=== PATIENT | female | born 1945 | race Caucasian/White ===

== ENCOUNTER 2016-08-19 10:49 | Outpatient (CLI) | payer MEDICARE, OTHER | END 2016-08-19 10:50 | disposition home or self-care (01) | DX: R06.09 Other forms of dyspnea (principal) ==

== ENCOUNTER 2016-08-19 11:22 | Outpatient (CLI) | payer MEDICARE, OTHER | END 2016-08-19 11:23 | disposition home or self-care (01) | DX: R06.00 Dyspnea, unspecified (principal) ==

== ENCOUNTER 2016-08-25 13:21 | Outpatient (CLI) | payer MEDICARE, OTHER ==
[2016-08-25] MEDS ORDERED: ALBUTEROL NEB 2.5 MG/3 ML INH ONE (14:40)
== END 2016-08-25 13:22 | disposition home or self-care (01) ==
DX: R06.00 Dyspnea, unspecified (principal)
CPT/HCPCS: 94060; 94729; J7613

== ENCOUNTER 2016-12-05 10:31 | Outpatient (CLI) | payer MEDICARE, OTHER ==
[2016-12-05 19:12] LABS: ALBUMIN/GLOBULIN RATIO 1.3 (1.0-2.2); BILIRUBIN,TOTAL 0.5 mg/dL (0.2-1.0); BUN - BLOOD UREA NITROGEN 18 mg/dL (6-20); CALCIUM 9.3 mg/dL (8.5-10.3); CARBON DIOXIDE - CO2 31 mmol/L (21-32); CHLORIDE 97 mmol/L (101-111); CHOL/HDL RATIO 3.6 (<4.4); CHOLESTEROL 205 mg/dL; GFR - MDRD 55 (>89); GLUCOSE 93 mg/dL (70-100); HDL CHOLESTEROL 57 mg/dL; LDL/HDL RATIO 2.1 (<4.4); POTASSIUM 3.2 mmol/L (3.5-5.0); SODIUM 138 mmol/L (135-145); TOTAL PROTEIN 7.2 g/dL (6.7-8.2); TRIGLYCERIDES 156 mg/dL; VLDL CHOLESTEROL 31 mg/dL
== END 2016-12-05 10:32 | disposition home or self-care (01) ==
LOC: LAB.F 10:31
PROVIDERS: ATTEND Internal Medicine
DX: I10 Essential (primary) hypertension (principal); E78.00 Pure hypercholesterolemia, unspecified
CPT/HCPCS: 36415; 80053; 80061

== ENCOUNTER 2017-03-08 08:53 | Outpatient (CLI) | payer MEDICARE, OTHER ==
[2017-03-08 18:41] LABS: CALCIUM 9.3 mg/dL (8.5-10.3)
== END 2017-03-08 08:54 | disposition home or self-care (01) ==
LOC: LAB.F 08:53
PROVIDERS: ATTEND Physician Assistant Medical
DX: E87.6 Hypokalemia (principal)
CPT/HCPCS: 36415; 80048

== ENCOUNTER 2017-05-16 12:22 | Outpatient (CLI) | payer MEDICARE, OTHER ==
[2017-05-16 17:39] LABS: CALCIUM 9.3 mg/dL (8.5-10.3); POTASSIUM 3.6 mmol/L (3.5-5.0)
== END 2017-05-16 12:23 | disposition home or self-care (01) ==
LOC: LAB.F 12:22
PROVIDERS: ATTEND Family Medicine
DX: E87.6 Hypokalemia (principal); I10 Essential (primary) hypertension
CPT/HCPCS: 36415; 80048

== ENCOUNTER 2017-09-05 09:23 | Outpatient (CLI) | payer MEDICARE, OTHER ==
[2017-09-05 17:47] LABS: CALCIUM 9.1 mg/dL (8.5-10.3)
== END 2017-09-05 09:24 | disposition home or self-care (01) ==
LOC: LAB.F 09:23
PROVIDERS: ATTEND Family Medicine
DX: E87.6 Hypokalemia (principal); I10 Essential (primary) hypertension
CPT/HCPCS: 36415; 80048

== ENCOUNTER 2017-10-02 11:01 | Outpatient (CLI) | payer MEDICARE, OTHER ==
[2017-10-02 17:56] LABS: CALCIUM 8.7 mg/dL (8.5-10.3); CREATININE 0.9 mg/dL (0.4-1.0)
== END 2017-10-02 11:02 | disposition home or self-care (01) ==
LOC: LAB.F 11:01
PROVIDERS: ATTEND Family Medicine
DX: E87.6 Hypokalemia (principal)
CPT/HCPCS: 36415; 80048

== ENCOUNTER 2018-01-02 08:30 | Outpatient (CLI) | payer MEDICARE, OTHER ==
[2018-01-02 11:46] LABS: BASOPHILS # (AUTO) 0.1 10^3/uL (0.0-0.1); BASOPHILS % (AUTO) 0.8 %; EOSINOPHILS # (AUTO) 0.8 10^3/uL (0.0-0.7); EOSINOPHILS % (AUTO) 10.6 %; HGB - HEMOGLOBIN 15.2 g/dL (12.0-16.0); LYMPHOCYTES % (AUTO) 41.1 %; MEAN CORPUSCULAR HEMOGLOBIN 30.5 pg (27.0-31.0); MEAN CORPUSCULAR HGB CONC 33.2 g/dL (32.0-36.0); MEAN CORPUSCULAR VOLUME 91.8 fL (81.0-99.0); MEAN PLATELET VOLUME 9.2 fL (7.9-10.8); MONOCYTES # (AUTO) 0.8 10^3/uL (0.0-1.0); MONOCYTES % (AUTO) 10.9 %; NEUTROPHILS # (AUTO) 2.7 10^3/uL (1.5-6.6); NEUTROPHILS % (AUTO) 36.6 %; PLT - PLATELET COUNT 291 10^3/uL (130-450); RED BLOOD COUNT 4.97 10^6/uL (4.20-5.40); RED CELL DISTRIBUTION WIDTH 13.3 % (12.0-15.0); WHITE BLOOD COUNT 7.3 x10^3/uL (4.8-10.8)
[2018-01-02 12:03] LABS: ALBUMIN 3.9 g/dL (3.2-5.5); ALBUMIN/GLOBULIN RATIO 1.1 (1.0-2.2); ALKALINE PHOSPHATASE 86 IU/L (42-121); ALT ALANINE AMINOTRANSFERASE 46 IU/L (10-60); AST ASPARTATE AMINOTRANSFERASE 61 IU/L (10-42); BILIRUBIN,TOTAL 1.1 mg/dL (0.2-1.0); BUN - BLOOD UREA NITROGEN 12 mg/dL (6-20); CALCIUM 8.9 mg/dL (8.5-10.3); CARBON DIOXIDE - CO2 24 mmol/L (21-32); CHLORIDE 104 mmol/L (101-111); CHOL/HDL RATIO 3.1 (<4.4); CHOLESTEROL 168 mg/dL; GFR - MDRD 54 (>89); GLUCOSE 99 mg/dL (70-100); HDL CHOLESTEROL 55 mg/dL; LDL CHOLESTEROL,CALCULATED 81 mg/dL; LDL/HDL RATIO 1.5 (<4.4); SODIUM 137 mmol/L (135-145); TOTAL PROTEIN 7.3 g/dL (6.7-8.2); VLDL CHOLESTEROL 32 mg/dL
== END 2018-01-02 08:31 | disposition home or self-care (01) ==
LOC: LAB.F 08:30
PROVIDERS: ATTEND Family Medicine
DX: E87.6 Hypokalemia (principal); E78.00 Pure hypercholesterolemia, unspecified; I10 Essential (primary) hypertension; E55.9 Vitamin D deficiency, unspecified
CPT/HCPCS: 36415; 80053; 80061; 82306; 83721; 84443; 85025

== ENCOUNTER 2018-08-16 09:55 | Outpatient (CLI) | payer MEDICARE, OTHER ==
[2018-08-16 18:21] LABS: ALBUMIN 3.7 g/dL (3.2-5.5); ALBUMIN/GLOBULIN RATIO 1.2 (1.0-2.2); ALKALINE PHOSPHATASE 96 IU/L (42-121); ALT ALANINE AMINOTRANSFERASE 16 IU/L (10-60); AST ASPARTATE AMINOTRANSFERASE 21 IU/L (10-42); BILIRUBIN,TOTAL 0.8 mg/dL (0.2-1.0); BUN - BLOOD UREA NITROGEN 12 mg/dL (6-20); CALCIUM 8.7 mg/dL (8.5-10.3); CARBON DIOXIDE - CO2 26 mmol/L (21-32); CHLORIDE 103 mmol/L (101-111); CHOL/HDL RATIO 3.5 (<4.4); CHOLESTEROL 221 mg/dL; CREATININE 0.9 mg/dL (0.4-1.0); GFR - MDRD 61 (>89); GLUCOSE 91 mg/dL (70-100); HDL CHOLESTEROL 64 mg/dL; LDL CHOLESTEROL,CALCULATED 120 mg/dL; LDL/HDL RATIO 1.9 (<4.4); SODIUM 138 mmol/L (135-145); TOTAL PROTEIN 6.8 g/dL (6.7-8.2); VLDL CHOLESTEROL 37 mg/dL
== END 2018-08-16 09:56 | disposition home or self-care (01) ==
LOC: LAB.F 09:55
PROVIDERS: ATTEND Internal Medicine
DX: I10 Essential (primary) hypertension (principal); E78.00 Pure hypercholesterolemia, unspecified
CPT/HCPCS: 36415; 80053; 80061; 83721; 84443

== ENCOUNTER 2018-12-14 12:36 | Outpatient (CLI) | payer MEDICARE, OTHER ==
[2018-12-14 17:52] LABS: BASOPHILS # (AUTO) 0.1 10^3/uL (0.0-0.1); BASOPHILS % (AUTO) 1.1 %; EOSINOPHILS # (AUTO) 0.5 10^3/uL (0.0-0.7); EOSINOPHILS % (AUTO) 7.1 %; HGB - HEMOGLOBIN 14.9 g/dL (12.0-16.0); LYMPHOCYTES # (AUTO) 2.5 10^3/uL (1.5-3.5); LYMPHOCYTES % (AUTO) 38.2 %; MEAN CORPUSCULAR HEMOGLOBIN 29.6 pg (27.0-31.0); MEAN CORPUSCULAR HGB CONC 32.1 g/dL (32.0-36.0); MEAN CORPUSCULAR VOLUME 92.1 fL (81.0-99.0); MEAN PLATELET VOLUME 11.3 fL (7.9-10.8); MONOCYTES # (AUTO) 0.7 10^3/uL (0.0-1.0); MONOCYTES % (AUTO) 10.9 %; NEUTROPHILS # (AUTO) 2.8 10^3/uL (1.5-6.6); NEUTROPHILS % (AUTO) 42.5 %; PLT - PLATELET COUNT 283 10^3/uL (130-450); RED BLOOD COUNT 5.04 10^6/uL (4.20-5.40); RED CELL DISTRIBUTION WIDTH 13.2 % (12.0-15.0); WHITE BLOOD COUNT 6.5 x10^3/uL (4.8-10.8)
[2018-12-14 18:03] LABS: ALBUMIN 3.8 g/dL (3.2-5.5); ALBUMIN/GLOBULIN RATIO 1.1 (1.0-2.2); BILIRUBIN,TOTAL 0.5 mg/dL (0.2-1.0); CALCIUM 8.8 mg/dL (8.5-10.3); CREATININE 0.9 mg/dL (0.4-1.0); TOTAL PROTEIN 7.2 g/dL (6.7-8.2)
== END 2018-12-14 12:37 | disposition home or self-care (01) ==
LOC: LAB.S 12:36
PROVIDERS: ATTEND Internal Medicine
DX: M79.609 Pain in unspecified limb (principal)
CPT/HCPCS: 36415; 80053; 82550; 83735; 85025; 85651

== ENCOUNTER 2019-02-19 09:38 | Day surgery (SDC) | payer MEDICARE, OTHER ==
[2019-02-19] MEDS ORDERED: MIDAZOLAM 2 MG/2 ML VIAL IVP ONE (09:39)
[2019-02-19] MEDS ORDERED: fentaNYL 100 MCG/2 ML VIAL IVP ONE (09:39)
[2019-02-19] MEDS ORDERED: LACTATED RINGERS 1,000 ML IV ONE (09:54)
[2019-02-19 12:20] VITALS: BP 99/69
== END 2019-02-19 09:39 | disposition home or self-care (01) ==
LOC: SDS 09:38
PROVIDERS: ATTEND Internal Medicine Gastroenterology
PROC: 0DBN8ZZ Excision of Sigmoid Colon, Via Natural or Artificial Opening Endoscopic (ICD-10-PCS; 2019-02-19)
PROC: 0DBM8ZZ Excision of Descending Colon, Via Natural or Artificial Opening Endoscopic (ICD-10-PCS; principal; 2019-02-19 11:00)
DX: Z12.11 Encounter for screening for malignant neoplasm of colon (principal); D12.4 Benign neoplasm of descending colon; D12.5 Benign neoplasm of sigmoid colon; K57.30 Diverticulosis of large intestine without perforation or abscess without bleeding; I10 Essential (primary) hypertension; J45.40 Moderate persistent asthma, uncomplicated
CPT/HCPCS: 45380; 45385; J7120

== ENCOUNTER 2020-01-01 10:08 | Outpatient (CLI) | payer MEDICARE ==
[2020-01-01 15:41] LABS: BUN - BLOOD UREA NITROGEN 14 mg/dL (6-20); CALCIUM 9.3 mg/dL (8.5-10.3); CARBON DIOXIDE - CO2 27 mmol/L (21-32); CHLORIDE 103 mmol/L (101-111); CHOL/HDL RATIO 2.9 (<4.4); CHOLESTEROL 173 mg/dL; CREATININE 1.1 mg/dL (0.4-1.0); GLUCOSE 94 mg/dL (70-100); HDL CHOLESTEROL 60 mg/dL; LDL CHOLESTEROL,CALCULATED 87 mg/dL; LDL/HDL RATIO 1.5 (<4.4); SODIUM 139 mmol/L (135-145); VLDL CHOLESTEROL 26 mg/dL
== END 2020-01-01 10:09 | disposition home or self-care (01) ==
LOC: LAB.S 10:08
PROVIDERS: ATTEND Internal Medicine
DX: J45.909 Unspecified asthma, uncomplicated (principal); E78.5 Hyperlipidemia, unspecified; I10 Essential (primary) hypertension; R73.01 Impaired fasting glucose; G64 Other disorders of peripheral nervous system
CPT/HCPCS: 36415; 80048; 80061; 81599; 83036; 83721

== ENCOUNTER 2020-06-01 08:00 | Outpatient (CLI) | payer MEDICARE ==
--- NOTE | 2020-06-01 16:35 | XRAY Report ---
PROCEDURE: Hand 3 View RT INDICATIONS: HAND PAIN, RIGHT TECHNIQUE: 3 views of the hand(s) acquired. COMPARISON: None FINDINGS: Bones: No fractures or dislocations. Osteoarthritic changes are noted throughout right hand and wri st more prominent involving first through fifth interphalangeal joints. Subtle radiolucency involving radial aspect of second metacarpal head as well as radial aspect of fifth middle phalangeal base, co ncerning for erosion secondary to inflammatory arthropathy. No suspicious bony lesions. Soft tissues: No suspicious soft tissue calcifications. IMPRESSION: Osteoarthritic changes throughout right hand and wrist. No fracture or dislocation. Erosion secondary to inflammatory arthropathy cannot be excluded in second metacarpal head and fifth middle phalangeal base. Reviewed by: Latrell Cutler MD on 06/01/2020 4:33 PM PST Approved by: Latrell Cutler MD on 06/01/2020 4:33 PM PST Station ID: [id number]
== END 2020-06-01 23:59 ==
LOC: DI.S 08:00
PROVIDERS: ATTEND Physician Assistant
DX: M19.041 Primary osteoarthritis, right hand (principal); M19.031 Primary osteoarthritis, right wrist

== ENCOUNTER 2020-06-19 12:35 | Outpatient (CLI) | payer MEDICARE ==
--- NOTE | 2020-06-19 14:24 | XRAY Report ---
PROCEDURE: Hand 3 View RT INDICATIONS: FINGER PAIN TECHNIQUE: 3 views of the hand(s) acquired. COMPARISON: 06/01/2020 FINDINGS: Bones: There is a nondisplaced fracture of the head of the right fifth metacarpal with associated harjit ctive changes of subacute fracture healing. Remainder the visualized osseous structures appear intact with stable appearance of osteophytic changes seen throughout the right hand and wrist. No suspiciou s bony lesions. Soft tissues: No suspicious soft tissue calcifications. IMPRESSION: 1. Nondisplaced head of fifth metacarpal fracture. There are reactive changes of subacute fracture he emil is identified. 2. Osteoarthritic changes throughout the right hand and wrist. Reviewed by: Rommel Mills MD on 06/19/2020 2:22 PM PST Approved by: Rommel Mills MD on 06/19/2020 2:22 PM PST Station ID: [id number]
== END 2020-06-19 12:36 | disposition home or self-care (01) ==
LOC: DI.S 12:35
PROVIDERS: ATTEND Internal Medicine
DX: S62.366A Nondisplaced fracture of neck of fifth metacarpal bone, right hand, initial encounter for closed fracture (principal); M19.041 Primary osteoarthritis, right hand; M19.031 Primary osteoarthritis, right wrist; M79.644 Pain in right finger(s)

== ENCOUNTER 2020-08-31 13:08 | Outpatient (CLI) | payer MEDICARE ==
[2020-08-31 13:37] LABS: CREATININE 0.8 mg/dL (0.4-1.0)
[2020-08-31] MEDS ORDERED: IOVERSOL 320 100 ML VIAL IVP ONE ×2 (13:59→15:04)
--- NOTE | 2020-08-31 16:20 | CT Report ---
PROCEDURE: ANGIO NECK W INDICATIONS: DIZZY SPELLS CONTRAST: IV CONTRAST: Optiray 320 ml: 80 PO CONTRAST: *NO PO CONTRAST TECHNIQUE: After the administration of intravenous contrast, 1.5 mm axial sections acquired from the aortic arch to the [place] of [place]stevez. Coronal 3-D maximum intensity projection (MIP) and/or volume rendering ref ormats were then performed. For radiation dose reduction, the following was used: automated exposur e control, adjustment of mA and/or kV according to patient size. COMPARISON: None. FINDINGS: Image quality: Excellent. Carotid system: The great vessels demonstrate a conventional anatomy as they arise from the aortic a rc. The origins of the common carotid arteries appear patent. The common carotid arteries demonstr ate normal calibers and courses. The bifurcation regions appear normal bilaterally. The internal ca rotid arteries demonstrate normal caliber and course. Posterior circulation: The origins of the vertebral arteries appear patent. The more superior porti ons of the vertebral arteries demonstrate normal course and caliber. They join to form a normal appe aring basilar artery. Soft tissues: Visualized neck soft tissues demonstrate no suspicious abnormalities. Bones: No suspicious bony lesions. Visualized cervical spine appears normally aligned. IMPRESSION: No hemodynamically significant stenosis of the major extracranial arterial vasculature. Nonhemodynami derek significant mild narrowing of the carotid bifurcations and origins of the arch branch vessels. The estimate of stenosis included in the report of the imaging study was calculated using the NASCET method Reviewed by: Mikey Gay MD on 08/31/2020 4:19 PM PDT Approved by: Mikey Gay MD on 08/31/2020 4:19 PM PDT Station ID: [id number]
--- NOTE | 2020-08-31 16:21 | CT Report ---
PROCEDURE: ANGIO HEAD W/WO INDICATIONS: DIZZY SPELLS CONTRAST: IV CONTRAST: Optiray 320 ml: 80 PO CONTRAST: *NO PO CONTRAST TECHNIQUE: After the administration of intravenous contrast, 1 mm thick sections acquired through the [place] of [place]stevez. Postcontrast 4.5 mm thick sections then re-acquired from the foramen magnum to the vertex. 3-dimensional lwphfak-puimlmkfz-xfatitxdis (MIP) and/or volume rendering reformats were acquired of the central intracranial vasculature. For radiation dose reduction, the following was used: automat ed exposure control, adjustment of mA and/or kV according to patient size. COMPARISON: None FINDINGS: Image quality: Excellent. Anterior circulation: Intracranial internal carotid arteries are normal in size and flow. The flow within the paired anterior cerebral arteries is normal and symmetric. The flow within the middle cer ebral arteries is normal and symmetric. The anterior communicating artery is seen. No aneurysms are seen. Posterior circulation: Visualized portions of the vertebral arteries demonstrate normal caliber, and join to form a normal appearing basilar artery. Flow within the posterior cerebral arteries is norm al and symmetric. No aneurysms are seen. CSF spaces: Ventricles are normal in size and shape. Basal cisterns are patent. No extra-axial flu id collections. Brain: No midline shift. No intracranial bleeds or masses. Babcock-white matter interface appears int act. Skull and face: Calvarium and facial bones appear intact, without suspicious lesions. Sinuses: Near complete opacification of the maxillary sinuses and ethmoid air cells. Sphenoid and fro ntal sinuses are predominantly but not entirely clear. The mastoid air cells are clear. IMPRESSION: No hemodynamically significant stenosis of the major intracranial arterial circulation. Diffuse inflammatory changes in the sinuses. Reviewed by: Mikey Gay MD on 08/31/2020 4:20 PM PDT Approved by: Mikey Gay MD on 08/31/2020 4:20 PM PDT Station ID: [id number]
== END 2020-08-31 13:09 | disposition home or self-care (01) ==
LOC: LAB 13:08 → DI 13:09
PROVIDERS: ATTEND Internal Medicine
DX: R42 Dizziness and giddiness (principal); R93.0 Abnormal findings on diagnostic imaging of skull and head, not elsewhere classified
CPT/HCPCS: 36415; 70496; 70498; 82565; Q9967

== ENCOUNTER 2021-01-01 12:45 | Outpatient (CLI) | payer MEDICARE ==
--- NOTE | 2021-01-01 15:06 | DEXA Report ---
PROCEDURE: Dexa Spine and/or Hip INDICATIONS: POST MENOPAUSAL TECHNIQUE: Dual energy x-ray absorptiometry (DXA) was performed on a NemeriX System. Regions measur ed are the AP Spine, femoral neck, and if needed forearm. COMPARISON: None. FINDINGS: Lumbar Spine: Bone Mineral Density 1.116 g/cm/cm,T score -0.5. Left Hip: Bone Mineral Density 0.870 g/cm/cm,T score -1.1. Left Femoral Neck: Bone Mineral Density 0.783 g/cm/cm, T score -1.8. (T score greater or equal to -1.0: NORMAL) (T score from -1.1 to -2.4: OSTEOPENIA) (T score less than or equal to -2.5 to: OSTEOPOROSIS) Impression: Osteopenia. Patients with diagnosis of osteoporosis or osteopenia should have regular bone mineral density assess ment. For those eligible for Medicare, routine testing is allowed once every 2 years. Testing frequ ency can be increased for patients who have rapidly progressing disease or for those who are receivin g medical therapy to restore bone mass. Reviewed by: Latrell Cutler MD on 01/01/2021 3:05 PM PDT Approved by: Latrell Cutler MD on 01/01/2021 3:05 PM PDT Station ID: [id number]
== END 2021-01-01 12:46 | disposition home or self-care (01) ==
LOC: DI 12:45
PROVIDERS: ATTEND Internal Medicine
DX: M85.89 Other specified disorders of bone density and structure, multiple sites (principal)

== ENCOUNTER 2021-02-26 11:29 | Outpatient (CLI) | payer MEDICARE ==
[2021-02-26 14:35] LABS: BASOPHILS # (AUTO) 0.1 10^3/uL (0.0-0.1); EOSINOPHILS # (AUTO) 0.5 10^3/uL (0.0-0.7); HCT - HEMATOCRIT 49.2 % (37.0-47.0); HGB - HEMOGLOBIN 15.9 g/dL (12.0-16.0); LYMPHOCYTES # (AUTO) 2.6 10^3/uL (1.5-3.5); LYMPHOCYTES % (AUTO) 38.6 %; MEAN CORPUSCULAR HEMOGLOBIN 29.8 pg (27.0-31.0); MEAN CORPUSCULAR HGB CONC 32.3 g/dL (32.0-36.0); MEAN CORPUSCULAR VOLUME 92.3 fL (81.0-99.0); MEAN PLATELET VOLUME 11.1 fL (7.9-10.8); MONOCYTES # (AUTO) 0.6 10^3/uL (0.0-1.0); MONOCYTES % (AUTO) 9.3 %; PLT - PLATELET COUNT 305 10^3/uL (130-450); RED BLOOD COUNT 5.33 10^6/uL (4.20-5.40); RED CELL DISTRIBUTION WIDTH 13.3 % (12.0-15.0); WHITE BLOOD COUNT 6.8 x10^3/uL (4.8-10.8)
[2021-02-26 15:51] LABS: ALBUMIN/GLOBULIN RATIO 1.2 (1.0-2.2); ALKALINE PHOSPHATASE 83 IU/L (42-121); ALT ALANINE AMINOTRANSFERASE 21 IU/L (10-60); AST ASPARTATE AMINOTRANSFERASE 23 IU/L (10-42); BILIRUBIN,TOTAL 0.5 mg/dL (0.2-1.0); BUN - BLOOD UREA NITROGEN 19 mg/dL (6-20); CALCIUM 9.2 mg/dL (8.5-10.3); CARBON DIOXIDE - CO2 29 mmol/L (21-32); CHLORIDE 100 mmol/L (101-111); CHOL/HDL RATIO 4.9 (<4.4); CHOLESTEROL 283 mg/dL; CREATININE 0.9 mg/dL (0.4-1.0); GFR - MDRD 61 (>89); GLUCOSE 108 mg/dL (70-100); HDL CHOLESTEROL 58 mg/dL; LDL CHOLESTEROL,CALCULATED 188 mg/dL; LDL/HDL RATIO 3.2 (<4.4); POTASSIUM 3.8 mmol/L (3.5-5.0); SODIUM 142 mmol/L (135-145); TOTAL PROTEIN 7.4 g/dL (6.7-8.2); TRIGLYCERIDES 183 mg/dL; VLDL CHOLESTEROL 37 mg/dL
[2021-02-26 20:58] LABS: ESTIMATED AVERAGE GLUCOSE 120 mg/dL (70-100); HEMOGLOBIN A1c% 5.8 % (4.27-6.07)
== END 2021-02-26 11:30 | disposition home or self-care (01) ==
LOC: LAB.S 11:29
PROVIDERS: ATTEND Internal Medicine
DX: I10 Essential (primary) hypertension (principal); E78.5 Hyperlipidemia, unspecified; R73.9 Hyperglycemia, unspecified; R42 Dizziness and giddiness
CPT/HCPCS: 36415; 80053; 80061; 83036; 83721; 85025

== ENCOUNTER 2021-11-25 08:00 | Outpatient (CLI) | payer MEDICARE ==
--- NOTE | 2021-11-25 15:39 | XRAY Report ---
PROCEDURE: Hip w/Pelvis 1V LT INDICATIONS: LEFT HIP CONTUSION TECHNIQUE: AP pelvis with lateral view(s) of the left hip(s). COMPARISON: None. FINDINGS: Bones: No fractures or dislocations. Pelvic ring appears intact. No suspicious bony lesions. Moder ate bilateral hip joint space narrowing and periarticular osteophyte formation. Soft tissues: The vi sualized bowel gas pattern is normal. No suspicious soft tissue calcifications. IMPRESSION: 1. Bilateral hip osteoarthritis. 2. No acute fracture. No osseous lesion. If symptoms and/or clinical suspicion for pathology continue , further assessment with repeat plain films, or advanced imaging (e.g., CT, MRI, or bone scan) is re commended for further assessment. Reviewed by: Nilesh Vera MD on 11/25/2021 3:37 PM PDT Approved by: Nilesh Vera MD on 11/25/2021 3:37 PM PDT Station ID: [id number]
== END 2021-11-25 23:59 | disposition home or self-care (01) ==
LOC: DI.S 08:00
PROVIDERS: ATTEND Physician Assistant Medical
DX: S70.02XA Contusion of left hip, initial encounter (principal); M16.0 Bilateral primary osteoarthritis of hip

== ENCOUNTER 2022-03-22 10:48 | Outpatient (CLI) | payer MEDICARE ==
[2022-03-22 14:45] LABS: BASOPHILS # (AUTO) 0.1 10^3/uL (0.0-0.1); EOSINOPHILS # (AUTO) 0.5 10^3/uL (0.0-0.7); EOSINOPHILS % (AUTO) 6.9 %; HCT - HEMATOCRIT 45.6 % (37.0-47.0); HGB - HEMOGLOBIN 15.4 g/dL (12.0-16.0); LYMPHOCYTES # (AUTO) 2.7 10^3/uL (1.5-3.5); LYMPHOCYTES % (AUTO) 34.8 %; MEAN CORPUSCULAR HEMOGLOBIN 30.4 pg (27.0-31.0); MEAN CORPUSCULAR HGB CONC 33.8 g/dL (32.0-36.0); MEAN CORPUSCULAR VOLUME 90.1 fL (81.0-99.0); MEAN PLATELET VOLUME 11.1 fL (7.9-10.8); MONOCYTES # (AUTO) 0.8 10^3/uL (0.0-1.0); MONOCYTES % (AUTO) 10.1 %; NEUTROPHILS # (AUTO) 3.7 10^3/uL (1.5-6.6); NEUTROPHILS % (AUTO) 47.1 %; PLT - PLATELET COUNT 305 10^3/uL (130-450); RED BLOOD COUNT 5.06 10^6/uL (4.20-5.40); RED CELL DISTRIBUTION WIDTH 12.6 % (12.0-15.0); WHITE BLOOD COUNT 7.8 x10^3/uL (4.8-10.8)
[2022-03-22 15:31] LABS: ALBUMIN 4.2 g/dL (3.2-5.5); ALBUMIN/GLOBULIN RATIO 1.2 (1.0-2.2); ALKALINE PHOSPHATASE 78 IU/L (42-121); ALT ALANINE AMINOTRANSFERASE 22 IU/L (10-60); AST ASPARTATE AMINOTRANSFERASE 25 IU/L (10-42); BILIRUBIN,TOTAL 0.5 mg/dL (0.2-1.0); BUN - BLOOD UREA NITROGEN 13 mg/dL (6-20); CALCIUM 9.4 mg/dL (8.5-10.3); CARBON DIOXIDE - CO2 30 mmol/L (21-32); CHLORIDE 100 mmol/L (101-111); CHOL/HDL RATIO 3.2 (<4.4); CHOLESTEROL 194 mg/dL; GFR - MDRD 54 (>89); GLUCOSE 110 mg/dL (70-100); HDL CHOLESTEROL 61 mg/dL; LDL CHOLESTEROL,CALCULATED 102 mg/dL; LDL/HDL RATIO 1.7 (<4.4); POTASSIUM 3.9 mmol/L (3.5-5.0); SODIUM 140 mmol/L (135-145); TOTAL PROTEIN 7.6 g/dL (6.7-8.2); TRIGLYCERIDES 157 mg/dL; VLDL CHOLESTEROL 31 mg/dL
[2022-03-22 15:36] LABS: THYROID STIMULATING HORMONE 2.41 uIU/mL (0.34-5.60)
== END 2022-03-22 10:49 | disposition home or self-care (01) ==
LOC: LAB.S 10:48
PROVIDERS: ATTEND Registered Nurse
DX: E78.00 Pure hypercholesterolemia, unspecified (principal); R60.0 Localized edema; Z79.899 Other long term (current) drug therapy; Z13.29 Encounter for screening for other suspected endocrine disorder
CPT/HCPCS: 36415; 80053; 80061; 83721; 84443; 85025

== ENCOUNTER 2022-03-30 08:00 | Outpatient (CLI) | payer MEDICARE | END 2022-03-30 23:59 | disposition home or self-care (01) | LOC: LAB.S 08:00 | PROVIDERS: ATTEND Physician Assistant Medical | DX: R10.9 Unspecified abdominal pain (principal) | CPT/HCPCS: 87086 ==